=== PATIENT | male | born 1975 | race Asian ===

== ENCOUNTER 2016-11-10 09:14 | Emergency (ER) | payer SELFPAY ==
[2016-11-10] MEDS ORDERED: Ketorolac INJ* 30 MG/ML 1 ML VIAL IV ONE (09:41)
[2016-11-10] MEDS ORDERED: NS 0.9% 1000 ML* 1,000 ML IV ONE (09:41)
[2016-11-10 09:52] LABS: Hematocrit 44 % (42-52); Hemoglobin 14.6 g/dl (14.0-18.0); Mean Corpuscular HGB Conc 33 g/dl (31-36); Mean Corpuscular Hemoglobin 31 pg (27-31); Mean Corpuscular Volume 92 fL (80-94); Mean Platelet Volume 8 um3 (7.4-10.4); Red Blood Count 4.78 10^6/ul (4.0-5.4); Red Cell Distribution Width 12 % (10.5-15); White Blood Count 5.3 10^3/ul (3.5-10.8)
[2016-11-10 10:02] LABS: ALT 16 U/L (7-52); AST 17 U/L (13-39); Albumin 4.1 g/dL (3.2-5.2); Alkaline Phosphatase 69 U/L (34-104); Amylase 39 U/L (29-103); Anion Gap 4 mmol/L (2-11); BUN/Creatinine Ratio 12.5 (8-20); Blood Urea Nitrogen 12 mg/dL (6-24); C Reactive Protein < 1.00 mg/L (< 5.00); CO2 Carbon Dioxide 28 mmol/L (22-32); Calcium 9.1 mg/dL (8.6-10.3); Chloride 106 mmol/L (101-111); EGFR African American 109.9 (>60); EGFR Non-African American 85.5 (>60); Globulin 2.7 g/dL (2-4); Glucose 109 mg/dL (70-100); Lipase 11 U/L (11.0-82.0); Potassium 3.5 mmol/L (3.5-5.0); Sodium 138 mmol/L (133-145); Total Protein 6.8 g/dL (6.4-8.9)
[2016-11-10 10:24] LABS: Urine Bacteria Absent (Absent); Urine Bilirubin Negative (Negative); Urine Glucose Negative (Negative); Urine Nitrite Negative (Negative)
--- NOTE | 2016-11-10 10:26 | RAD ---
INDICATION: RIGHT flank/lower quadrant abdominal pain upon waking this morning. Afebrile. Denies nausea, vomiting, diarrhea. COMPARISON: None. TECHNIQUE: Multidetector CT images were obtained from the lung bases to the ischial tuberosities. Evaluation of the viscera is limited without IV contrast. Multiplanar reformation. REPORT: The liver, gallbladder, pancreas, and spleen are unremarkable. Negative for CT abnormality of the upper GI, small bowel, or appendix visualized extending medial and inferior along the RIGHT pelvic sidewall reference axial images 131-144. Unremarkable colon. Negative for ascites or free air. Small fat-containing probable direct RIGHT inguinal hernia without inflammatory change. Normal adrenal glands. Moderate RIGHT hydronephrosis is traced to a 3 mm stone at the ureteropelvic junction. Associated mild enlargement of the RIGHT kidney. Negative for significant perinephric inflammatory stranding. No additional RIGHT or LEFT urolithiasis evident. Unremarkable nondilated ureters. Largely decompressed urinary bladder limiting assessment without gross abnormality. Symmetric seminal vesicles. Coarse RIGHT para midline calcification at the prostate. Negative for lymphadenopathy. Normal diameter abdominal aorta and common iliac arteries with mild calcific plaque at the RIGHT common iliac artery. Physiologic distention of the IVC. Unremarkable osseous structures. IMPRESSION: Moderate RIGHT hydronephrosis is traced to a 3 mm stone at the ureteropelvic junction.
[2016-11-10] MEDS ORDERED: Tamsulosin CAP* 0.4 MG PO ONE (11:11)
[2016-11-10 11:39] VITALS: BP 133/69
--- NOTE | 2016-11-10 11:48 | ED ---
Abdominal Pain/Male - HPI Summary HPI Summary: Patient presents with his son and after waking with RLQ and right flank pain. He has blood in his urine. He has never had pain like this before; nothing makes it better and movement makes it worse. He denies fever, chills, N/ V/D, CP or SOB. He has not taken any medication for pain. No new sexual partners , and no penile drainage or scrotal pain. - History of Current Complaint Chief Complaint: EDAbdPain Stated Complaint: LOWER RT ABD PAIN Time Seen by Provider: 11/10/16 09:24 Hx Obtained From: Patient, Family/Back Hanger Onset/Duration: Sudden Onset Timing: Constant Severity Initially: Severe Severity Currently: Severe Pain Intensity: 10 Pain Scale Used: 0-10 Numeric Location: Discrete At: RLQ, Flank Radiates: Yes Radiates to: Flank - right Character: Sharp Aggravating Factor(s): Movement Alleviating Factor(s): Nothing Associated Signs And Symptoms: Positive: Urinary Symptoms - blood in urine - Allergies/Home Medications Allergies/Adverse Reactions: Allergies Allergy/AdvReac Type Severity Reaction Status Date / Time No Known Allergies Allergy Verified 11/10/16 09:37 PMH/Surg Hx/FS Hx/Imm Hx Previously Healthy: Yes Infectious Disease History: No Infectious Disease History: Denies: Traveled Outside the [place] in Last 30 Days - Family History Known Family History: Positive: None - Social History Occupation: Employed Full-time Lives: With Family Alcohol Use: Rare Substance Use Type: Reports: None Smoking Status (MU): Never Smoked Tobacco Review of Systems Negative: Fever, Chills Negative: Chest Pain Negative: Shortness Of Breath Positive: Abdominal Pain. Negative: Vomiting, Diarrhea, Nausea Positive: flank pain - right, hematuria Negative: Myalgia Negative: Headache All Other Systems Reviewed And Are Negative: Yes Physical Exam Triage Information Reviewed: Yes Vital Signs On Initial Exam: Initial Vitals Temp Pulse Resp BP Pulse Ox 97.3 F 52 18 92/59 100 11/10/16 09:17 11/10/16 09:17 11/10/16 09:17 11/10/16 09:11/10/16 09:17 Vital Signs Reviewed: Yes Appearance: Positive: Well-Appearing, Well-Nourished, Pain Distress - patient moves throughout the exam trying to find a comfortable position. Skin: Positive: Warm, Skin Color Reflects Adequate Perfusion, Dry, Soft Head/Face: Positive: Normal Head/Face Inspection Eyes: Positive: EOMI, MARK, Conjunctiva Clear ENT: Positive: Hearing grossly normal Neck: Positive: Supple, Nontender, No Lymphadenopathy Respiratory/Lung Sounds: Positive: Clear to Auscultation, Breath Sounds Present Cardiovascular: Positive: Bradycardia Abdomen Description: Positive: No Organomegaly, Soft, CVA Tenderness (R). Negative: Nontender - diffusely tender; he says "he is so uncomfortable that he can't even feel the pain"., CVA Tenderness (L), Distended, Guarding, McBurney's Point Tenderness, Peritoneal Signs, Pulsatile Mass Musculoskeletal: Negative: Edema Left, Edema Right Neurological: Positive: Sensory/Motor Intact, Alert, Oriented to Person Place, Time, NV Bundle Intact Distally, Normal Gait Psychiatric: Positive: Affect/Mood Appropriate AVPU Assessment: Alert - Anthony Coma Scale Coma Scale Total: 15 Diagnostics - Vital Signs Vital Signs Temp Pulse Resp BP Pulse Ox 11/10/16 11:38 98.4 F 80 17 133/69 11/10/16 11:30 69 99 11/10/16 11:00 65 98 11/10/16 10:30 60 98 11/10/16 10:02 66 100 11/10/16 09:32 64 100 11/10/16 09:31 119/84 11/10/16 09:17 97.3 F 52 18 92/59 100 - Laboratory Lab Results: Lab Results 11/10/16 11/10/16 11/10/16 Range/Units 09:29 09:30 09:30 WBC 5.3 (3.5-10.8) 10^3/ul RBC 4.78 (4.0-5.4) 10^6/ul Hgb 14.6 (14.0-18.0) g/dl Hct 44 (42-52) % MCV 92 (80-94) fL MCH 31 (27-31) pg MCHC 33 (31-36) g/dl RDW 12 (10.5-15) % Plt Count 209 (150-450) 10^3/ul MPV 8 (7.4-10.4) um3 Neut % (Auto) 51.3 (38-83) % Lymph % (Auto) 39.3 (25-47) % [place] % (Auto) 6.8 (1-9) % Eos % (Auto) 1.2 (0-6) % Baso % (Auto) 1.4 (0-2) % Absolute Neuts (auto) 2.7 (1.5-7.7) 10^3/ul Absolute Lymphs (auto) 2.1 (1.0-4.8) 10^3/ul Absolute Monos (auto) 0.4 (0-0.8) 10^3/ul Absolute Eos (auto) 0.1 (0-0.6) 10^3/ul Absolute Basos (auto) 0.1 (0-0.2) 10^3/ul Absolute Nucleated RBC 0 10^3/ul Nucleated RBC % 0.1 Sodium 138 (133-145) mmol/L Potassium 3.5 (3.5-5.0) mmol/L Chloride 106 (101-111) mmol/L Carbon Dioxide 28 (22-32) mmol/L Anion Gap 4 (2-11) mmol/L BUN 12 (6-24) mg/dL Creatinine 0.96 (0.67-1.17) mg/dL Est GFR ( Amer) 109.9 (>60) Est GFR (Non-Af Amer) 85.5 (>60) BUN/Creatinine Ratio 12.5 (8-20) Glucose 109 H (70-100) mg/dL Lactic Acid (0.5-2.0) mmol/L Calcium 9.1 (8.6-10.3) mg/dL Total Bilirubin 0.70 (0.2-1.0) mg/dL AST 17 (13-39) U/L ALT 16 (7-52) U/L Alkaline Phosphatase 69 (34-104) U/L C-Reactive Protein < 1.00 (< 5.00) mg/L Total Protein 6.8 (6.4-8.9) g/dL Albumin 4.1 (3.2-5.2) g/dL Globulin 2.7 (2-4) g/dL Albumin/Globulin Ratio 1.5 (1-3) Amylase 39 (29-103) U/L Lipase 11 (11.0-82.0) U/L Urine Color Yellow Urine Appearance Cloudy Urine pH 6.0 (5-9) Ur Specific [place] 1.017 (1.010-1.030) Urine Protein Negative (Negative) Urine Ketones Negative (Negative) Urine Blood 3+ H (Negative) Urine Nitrate Negative (Negative) Urine Bilirubin Negative (Negative) Urine Urobilinogen Negative (Negative) Ur Leukocyte Esterase Negative (Negative) Urine WBC (Auto) Absent (Absent) Urine RBC (Auto) 3+(>10/hpf) H (Absent) Urine Bacteria Absent (Absent) Urine Glucose Negative (Negative) 11/10/16 Range/Units 09:30 WBC (3.5-10.8) 10^3/ul RBC (4.0-5.4) 10^6/ul Hgb (14.0-18.0) g/dl Hct (42-52) % MCV (80-94) fL MCH (27-31) pg MCHC (31-36) g/dl RDW (10.5-15) % Plt Count (150-450) 10^3/ul MPV (7.4-10.4) um3 Neut % (Auto) (38-83) % Lymph % (Auto) (25-47) % [place] % (Auto) (1-9) % Eos % (Auto) (0-6) % Baso % (Auto) (0-2) % Absolute Neuts (auto) (1.5-7.7) 10^3/ul Absolute Lymphs (auto) (1.0-4.8) 10^3/ul Absolute Monos (auto) (0-0.8) 10^3/ul Absolute Eos (auto) (0-0.6) 10^3/ul Absolute Basos (auto) (0-0.2) 10^3/ul Absolute Nucleated RBC 10^3/ul Nucleated RBC % Sodium (133-145) mmol/L Potassium (3.5-5.0) mmol/L Chloride (101-111) mmol/L Carbon Dioxide (22-32) mmol/L Anion Gap (2-11) mmol/L BUN (6-24) mg/dL Creatinine (0.67-1.17) mg/dL Est GFR ( Amer) (>60) Est GFR (Non-Af Amer) (>60) BUN/Creatinine Ratio (8-20) Glucose (70-100) mg/dL Lactic Acid 1.1 (0.5-2.0) mmol/L Calcium (8.6-10.3) mg/dL Total Bilirubin (0.2-1.0) mg/dL AST (13-39) U/L ALT (7-52) U/L Alkaline Phosphatase (34-104) U/L C-Reactive Protein (< 5.00) mg/L Total Protein (6.4-8.9) g/dL Albumin (3.2-5.2) g/dL Globulin (2-4) g/dL Albumin/Globulin Ratio (1-3) Amylase (29-103) U/L Lipase (11.0-82.0) U/L Urine Color Urine Appearance Urine pH (5-9) Ur Specific [place] (1.010-1.030) Urine Protein (Negative) Urine Ketones (Negative) Urine Blood (Negative) Urine Nitrate (Negative) Urine Bilirubin (Negative) Urine Urobilinogen (Negative) Ur Leukocyte Esterase (Negative) Urine WBC (Auto) (Absent) Urine RBC (Auto) (Absent) Urine Bacteria (Absent) Urine Glucose (Negative) Result Diagrams: 11/10/16 09:30 11/10/16 09:30 Lab Statement: Any lab studies that have been ordered have been reviewed, and results considered in the medical decision making process. - CT No standard instances CT Interpretation: Positive (See Comments) CT Interpretation Completed By: Radiologist - moderate right hydronephosis with a 3mm at the UPJ Re-Evaluation - Re-Evaluation First Eval Re-Evaluation Time: 10:25 Change: Improved Comment: Pain improved and patient is now comfortable Abdominal Pain Fem Course/Dx - Diagnoses Differential Diagnosis/HQI/PQRI: Bowel Obstruction, Diverticulitis, Gall Bladder Disease, Pancreatitis, Peptic Ulcer Disease, Renal Colic, Urinary Tract Infection Provider Diagnoses: Kidney stone, Hematuria Discharge - Discharge Plan Condition: Stable Disposition: HOME Prescriptions: HYDROcodone/ACETAMIN 5-325 MG* [[place] 5-325 TAB*] 1 tab PO Q4H PRN #12 tab MDD 6 PRN Reason: Pain Tamsulosin CAP* [Flomax CAP*] 0.4 mg PO DAILY #5 cap Patient Education Materials: Kidney Stones (ED), How to Strain Your Urine (ED) Referrals: No Primary Care Phys,NOPCP [Primary Care Provider] - Odin Cotton MD [Medical Doctor] - Additional Instructions: Please use the medication provided to help decrease pain and increase urinary flow. Drink extra fluids. Call the urologist listed today for an appointment for follow-up care. Return to the emergency department if symptoms worsen.
== END 2016-11-10 11:38 | disposition home or self-care (01) ==
LOC: ED 09:14
DX: N20.0 Calculus of kidney (principal); R31.9 Hematuria, unspecified; R10.31 Right lower quadrant pain
CPT/HCPCS: 36415; 74176; 80053; 81003; 81015; 82150; 83605; 83690; 85025; 86140; 96361; 96374; 99283; J1885